=== PATIENT | female | born 2000 | race Caucasian/White ===

== ENCOUNTER 2023-10-28 17:44 | Emergency (ER) | payer MEDICAID ==
[~2023-10-28] VITALS: Ht 162.6 cm; Wt 59.0 kg
[2023-10-28] MEDS ORDERED: Amoxicillin/Clavulanate K 875 MG Tab PO ONE (18:00)
[2023-10-28] MEDS ORDERED: AMOCLA875 PO (18:01)
== END 2023-10-28 18:30 | disposition home or self-care (01) ==
LOC: ER 17:44
DX: L08.9 Local infection of the skin and subcutaneous tissue, unspecified (principal); Z79.899 Other long term (current) drug therapy
CPT/HCPCS: 99283; A9270

== ENCOUNTER 2023-10-30 16:38 | Emergency (ER) | payer MEDICAID ==
[~2023-10-30] VITALS: Ht 167.6 cm; Wt 70.3 kg
[~2023-10-30 16:38] MED LIST: AMOCLA875 PO
[2023-10-30] MEDS ORDERED: Ketorolac Tromethamine 15mg Vial IM ONE (18:15)
[2023-10-30] MEDS ORDERED: RX Prepack 2 Tabs Ondansetron ODT 4MG UD ONE (18:15)
[2023-10-30] MEDS ORDERED: Trimethoprim/Sulfamethoxazole DS Tab PO ONE (18:15)
[2023-10-30] MEDS ORDERED: Cephalexin Monohydrate 500 MG Cap PO ONE (18:15)
[2023-10-30] MEDS ORDERED: BACTRIM DS TAB1 EAC1 PO (18:21)
[2023-10-30] MEDS ORDERED: ONDA4 PO (18:21)
[2023-10-30] MEDS ORDERED: CEPH500 PO (18:21)
== END 2023-10-30 18:52 | disposition home or self-care (01) ==
LOC: ER 16:38
DX: L03.211 Cellulitis of face (principal)
CPT/HCPCS: 96372; 99283-25; A9270; J1885

== ENCOUNTER 2024-07-01 21:47 | Emergency (ER) | payer MEDICARE, OTHER ==
[~2024-07-01] VITALS: Ht 162.6 cm; Wt 59.4 kg
[~2024-07-01 21:47] MED LIST changes: +BACTRIM DS TAB1 EAC1 PO; +CEPH500 PO; +Ibuprofen600 MG PO; +LIDO700A20 TOP; +ONDA4 PO; +ONDA4ODT MM
[2024-07-01] MEDS ORDERED: Ondansetron 4 MG SoluTab SL ONE (22:10)
== END 2024-07-02 00:21 | disposition home or self-care (01) ==
LOC: ER 21:47
DX: R06.02 Shortness of breath (principal); R05.9 Cough, unspecified; R07.9 Chest pain, unspecified; Z79.899 Other long term (current) drug therapy; R10.9 Unspecified abdominal pain; E86.0 Dehydration; Z59.89 Other problems related to housing and economic circumstances
CPT/HCPCS: 0241U; 71046; 74177; 80053; 81001; 81025; 83690; 84703; 85025; 96374-59; 96375; 99284-25; A9270; J1885; J2405; J7030; Q9967